=== PATIENT | male | born 1935 | race Hispanic/Latino ===

== ENCOUNTER 2020-12-13 11:20 | Inpatient (IN) | payer MEDICARE ==
[2020-12-13] MEDS ORDERED: SODIUM BICARB 8.4% 50 MEQ/50 ML SYRINGE IV ONE ×2 (11:38→12:00)
--- NOTE | 2020-12-13 11:53 | Emergency Department Report ---
ED Palpitations HPI - General Chief Complaint: Cardiac Arrest/CPR Stated Complaint: IRREGULAR HEART RATE Time Seen by Provider: 12/13/20 11:27 Source: patient, EMS, old records reviewed (documentation from [place]) Mode of arrival: Stretcher Limitations: No Limitations - History of Present Illness Initial Comments: Chief complaint: Low heart rate, hypotension HPI: This is an 85-year-old male who presents from [facility] with clinic for low heart rate and hypotension. Patient's medical history includes coronary artery disease with 2 cardiac stents, CLL, renal calculus, stroke, cataract, myeloproliferative disorder EMS was called for transport. Initial rhythm suspected to be third-degree heart block. EMS saw that patient became unresponsive. EMS interpreted the cardiac rhythm to be ventricular fibrillation. Patient received 1 shock. He became responsive again without requiring chest compressions. Patient explains that he has been feeling dizzy lately. Patient does not have history of hypertension. He states that his blood pressur e is normally 90/40. He was evaluated at [facility] on Thursday. Initially diagnosed with dehydra tion. He has history of severe anemia due to to the myeloproliferative disorder. He received transfusion and was discharged on Thursday. His heart rate has been in the 40s since he has been ill. He recalls his heart rate being in the 40s at [place]. He has not had any cardiac issues other than incidental finding of coronary artery disease remotely. He has had dizziness shortness of breath since discharge. His transported him to [facility] per private auto. Mr. Moura has experienced shooting pain for the last day. He has 1 to 2 minutes of shocking pain throughout his body. Patient is a retired nurse chemical dependency. He lives with his . Medications include, gabapentin, docusate, Lipitor, amiodarone, aspirin, Flomax, Eliquis, prednisone, allopurinol, omeprazole, furosemide, folic acid, Procrit -: days(s) (6 days since Thursday) Context: occured during rest Arrythmia History: other (No known history of arrhythmia) Associated Symptoms: other (Lightheadedness shortness of breath) Treatments Prior to Arrival: cardioversion - Related Data Allergies Allergy/AdvReac Type Severity Reaction Status Date / Time No Known Allergies Allergy Unverified 12/13/20 11:36 ED Review of Systems ROS: Stated complaint: IRREGULAR HEART RATE Other details as noted in HPI Comment: All other systems reviewed and negative Constitutional: malaise Respiratory: shortness of breath. denies: cough Cardiovascular: denies: chest pain, palpitations ED Past Medical Hx - Past Medical History Previous Medical History?: Yes Additional medical history: Coronary artery disease,myeloproliferative disorder - Surgical History Past Surgical History?: Yes Additional Surgical History: Cardiac stents - Social History Smoking Status: Never Smoker ED Physical Exam - General Limitations: Other General appearance: alert, in no apparent distress, other (Frail pale GCS 15 able to give a full history) - Head Head exam: Present: atraumatic, normocephalic - Eye Eye exam: Present: normal appearance - ENT ENT exam: Present: mucous membranes dry, other (No oropharyngeal lesions) - Neck Neck exam: Present: normal inspection, full ROM - Respiratory Respiratory exam: Present: normal lung sounds bilaterally. Absent: respiratory distress, wheezes, rales, stridor - Cardiovascular Cardiovascular Exam: Present: normal rhythm, bradycardia, irregular rhythm. Absent: systolic murmur, diastolic murmur, rubs, gallop - GI/Abdominal GI/Abdominal exam: Present: soft, normal bowel sounds. Absent: distended, tenderness, guarding, rebound - Extremities Exam Extremities exam: Present: pedal edema, other (Ankle pedal edema) - Back Exam Back exam: Present: normal inspection - Neurological Exam Neurological exam: Present: alert, oriented X3 - Psychiatric Psychiatric exam: Present: flat affect - Skin Skin exam: Present: dry, pallor ED Course Vital Signs 12/13/20 12/13/20 12/13/20 11:22 11:30 11:46 Pulse Rate 58 L Respiratory 20 16 Rate Blood Pressure 109/41 94/39 O2 Sat by Pulse 97 93 100 Oximetry 12/13/20 12/13/20 12/13/20 12:00 12:15 12:31 Pulse Rate Respiratory 29 H 15 29 H Rate Blood Pressure 96/49 77/48 O2 Sat by Pulse 100 100 97 Oximetry 12/13/20 12/13/20 12/13/20 12:45 13:01 13:15 Pulse Rate 57 L Respiratory 17 28 H 22 Rate Blood Pressure 77/48 88/59 88/59 O2 Sat by Pulse 100 96 Oximetry ED Medical Decision Making - Lab Data Result diagrams: 12/13/20 11:41 12/13/20 11:41 - EKG Data -: EKG Interpreted by Me (AV dissociation, left axis, prolonged QTC, widened QRS) - EKG Data 12/13/20 12:03 EKG obtained 1037 at [facility] AV disassociation present with ventricular rate 30 bpm irregular normal QTC no significant ST elevation widened QRS Old EKG provided in documentation In October 31, 2019 patient had narrow QRS with first-degree AV block Today's EKG obtained at our facility Time obtained 1123 EKG interpreted by me A-V dissociation ventricular rate 50 bpm irregular wide QRS prolonged QTC no obvious ST elevation left axis deviation - Radiology Data Radiology results: report reviewed Patient Name: ROSIE MOURA Gender: Male Date of : 1935 Referring Provider: RONALDO ELIZONDO Organization: [facility] Accession Number: [id number] Requested Date: December 13, 2020 11:27 Report Status: Final Requested Procedure: 1 Procedure Description: XR chest 1V ap Modality: XR Findings Reporting MD: Aristides Sanchez Dictation Time: December 13, 2020 10:51 Head Of Marketing Analytics: Not available Orchestra Conductor Date: CHEST 1 VIEW 12/13/2020 10:49 AM INDICATION / CLINICAL INFORMATION: arrhythmia. COMPARISON: None available. FINDINGS: SUPPORT DEVICES: None. HEART / MEDIASTINUM: Enlarged cardiac silhouette. LUNGS / PLEURA: Central pulmonary vascular congestion is noted with mild b ilateral interstitial opacities. No pleural effusion. No pneumothorax. ADDITIONAL FINDINGS: No significant additional findings. IMPRESSION: 1. Findings consistent with congestive heart failure and bilateral interstitial edema. Signer Name: Aristides Sanchez MD Signed: 12/13/2020 10:51 AM Workstation Name: [id number] - Medical Decision Making 1. Third-degree heart block with cardiogenic shock: Patient has pacer pads in place, dopamine infusion at this time. Cardiology consult evaluated patient [id number] in emergency department. BMP 17 871, troponin within normal limits. 2. Myeloproliferative disorder: Patient's recent hemoglobin is 7.4 according to patient's report. Hemoglobin 6.8 today. Patient will receive transfusion packed red blood cells. 3. Acute on chronic kidney injury. Patient reports creatinine to be 1.7 at baseline. Creatinine 2.9. Suspect vasomotor nephropathy with severe anemia. Critical Care Time: Yes Critical care time in (mins) excluding proc time.: 40 Critical care attestation.: If time is entered above; I have spent that time in minutes in the direct care of this critically ill patient, excluding procedure time. 40 minutes of critical care time excluding procedures were used in the care of the patient. I came immediately to the bedside upon patient's arrival. I obtained history from EMS at the bedside. I discussed treatment plan with the nursing team members. I reviewed electronic record. I kept the family member informed. Patient required multiple interventions and reassessments. I spoke with [place] physician in order to obtain additional medical history. ED Disposition Clinical Impression: Third degree heart block, Cardiogenic shock, Acute kidney injury, Myeloproliferative disorder, History of atrial fibrillation, Anticoagulant long- term use Disposition: 09 OP ADMIT IP TO THIS HOSP Is pt being admited?: Yes Does the pt Need Aspirin: No Condition: Critical Referrals: ROSIE WONG MD [Primary Care Provider] - 3-5 Days
--- NOTE | 2020-12-13 11:55 | XRay Report ---
CHEST 1 VIEW 12/13/2020 10:49 AM INDICATION / CLINICAL INFORMATION: arrhythmia. COMPARISON: None available. FINDINGS: SUPPORT DEVICES: None. HEART / MEDIASTINUM: Enlarged cardiac silhouette. LUNGS / PLEURA: Central pulmonary vascular congestion is noted with mild bilateral interstitial opaci ties. No pleural effusion. No pneumothorax. ADDITIONAL FINDINGS: No significant additional findings. IMPRESSION: 1. Findings consistent with congestive heart failure and bilateral interstitial edema. Signer Name: Aristides Sanchez MD Signed: 12/13/2020 11:51 AM Workstation Name: [id number]
[2020-12-13] MEDS ORDERED: CALCIUM GLUCONATE 1,000 MG in SODIUM CHLORIDE 0.9% 100 ML IV ONE (12:00)
[2020-12-13 12:19] LABS: INR 2.23 (0.87-1.13)
[2020-12-13 12:20] LABS: Calcium 7.8 mg/dL (8.4-10.2); Partial Thromboplastin Time 42.7 Sec. (24.2-36.6)
[2020-12-13 12:34] LABS: Hematocrit 22.3 % (35.5-45.6); Hemoglobin 6.9 gm/dl (11.8-15.2); Mean Corpuscular HGB Conc 31 % (32-34); Mean Corpuscular Volume 106 fl (84-94)
[2020-12-13 12:49] LABS: Red Cell Distribution Width 23.9 % (13.2-15.2)
[2020-12-13 12:50] LABS: Platelet Count 95 K/mm3 (140-440)
[2020-12-13] MEDS ORDERED: DOPamine/D5W 800 MG/250 ML 800 MG/250 ML BAG IV ONE ×2 (13:02)
[2020-12-13] MEDS ORDERED: SODIUM CHLORIDE 0.9% 500 ML 500 ML IV ONE (13:03)
[2020-12-13] MEDS ORDERED: HEPARIN/NS 5000 UNIT/500ML 0 ML IR ONE (14:05)
[2020-12-13] MEDS ORDERED: LIDOCAINE (1%) 10 MG/1 ML VIAL 20 ML MDV ONE (14:06)
[2020-12-13] MEDS ORDERED: HEPARIN 10,000 UNITS/10 ML VIAL ONE (14:06)
[2020-12-13] MEDS ORDERED: fentaNYL 100 MCG/2 ML INJ ONE (14:07)
[2020-12-13] MEDS ORDERED: MIDAZOLAM 2 MG/2 ML INJ ONE (14:07)
--- NOTE | 2020-12-13 14:28 | Consultation ---
History of Present Illness Consult date: 12/13/20 Requesting physician: RONALDO ELIZONDO History of present illness: This patient is a 85-year-old male with a significant history of A. fib with RVR anticoagulated on Eliquis and rate controlled with amiodarone, coronary artery disease with reported stent x2 (2013), CLL, primary fibrosis, chronic anemia, history of CVA x2 (2011). This patient is previously unknown to our practice. He is followed by [place] [facility]. Patient presents to [facility] ER via EMS with complaint of syncopal events with associated chest pain. Patient was shocked once in route by EMS, rhythm unknown. Review of telemetry reveals patient in third-degree heart block. Review of labs reveal severe anemia Hgb 6.9, thrombocytopenia: Platelets 95, kidney dysfunction: Creatinine 2.9. Patient states he was in the emergency room approximately 1 week ago where he received 1 unit of PRBCs for severe anemia. Patient states that he has been cared for in [place] facilities including his ER visit last week and had stents placed in 2013 at [facility], but chart review shows no prior visits. Will search for records to confirm. BNP is noted to be elevated on admission. Past History Past Medical History: atrial fib, CAD (CLL), cancer, other (Primary fibrosis) Past Surgical History: Other Medications and Allergies Allergies Allergy/AdvReac Type Severity Reaction Status Date / Time No Known Allergies Allergy Unverified 12/13/20 11:36 Active Meds: Active Medications Dopamine HCl/Dextrose (Intropin Drip 800 Mg/D5w 250 Ml) 800 mg in 250 mls @ 8.165 mls/hr IV TITR ONE; Protocol Stop: 12/14/20 19:39 Last Admin: 12/13/20 13:10 Dose: 5 mcg/kg/min, 8.165 mls/hr Documented by: Review of Systems Constitutional: no weight loss, no weight gain, no fever, no chills, no sweats Ears, nose, mouth and throat: no ear pain, no ear discharge, no decreased heari ng, no nose pain, no nasal congestion, no nasal discharge Cardiovascular: chest pain, edema, syncope, no orthopnea, no palpitations, no rapid/irregular heart beat, no lightheadedness, no shortness of breath Respiratory: no hemoptysis, no shortness of breath, no dyspnea on exertion Gastrointestinal: no abdominal pain, no nausea, no vomiting, no diarrhea Genitourinary Male: no flank pain Musculoskeletal: no neck stiffness, no neck pain, no shooting arm pain, no arm numbness/tingling, no low back pain, no shooting leg pain Integumentary: no rash, no pruritis, no redness, no sores, no wounds, no jaundice Neurological: no head injury, no paralysis, no weakness, no parathesias, no numbness, no tingling, no seizures, no syncope Psychiatric: no anxiety Endocrine: no cold intolerance, no heat intolerance Hematologic/Lymphatic: no easy bruising, no easy bleeding Allergic/Immunologic: no urticaria Physical Examination Last Vital Signs Temp Pulse 57 L 12/13/20 12:45 Resp 22 12/13/20 13:15 BP 88/59 12/13/20 13:15 Pulse Ox 96 12/13/20 13:01 HEENT: Positive: PERRL, Normocephaly, Mucus Membranes Moist Neck: Positive: neck supple, trachea midline Cardiac: Positive: S1/S2, Other (Third-degree heart block) Lungs: Positive: Normal Exam Neuro: Positive: Grossly Intact Abdomen: Positive: Unremarkable, Soft Skin: Negative: Rash, Wound Musculoskeletal: No Pain Extremities: Present: upper extr. pulses, lower extr. pulses, +1 Edema Results 12/13/20 11:41 12/13/20 11:41 Cardiac Enzymes 12/13/20 Range/Units 11:41 AST 28 (5-40) units/L Coagulation 12/13/20 Range/Units 11:41 PT 24.7 H (12.2-14.9) Sec. INR 2.23 H (0.87-1.13) APTT 42.7 H (24.2-36.6) Sec. CBC 12/13/20 Range/Units 11:41 WBC 28.8 H (4.5-11.0) K/mm3 RBC 2.10 L (3.65-5.03) M/mm3 Hgb 6.9 L (11.8-15.2) gm/dl Hct 22.3 L (35.5-45.6) % Plt Count 95 L (140-440) K/mm3 Comprehensive Metabolic Panel 12/13/20 Range/Units 11:41 Sodium 135 L (137-145) mmol/L Potassium 4.4 (3.6-5.0) mmol/L Chloride 102.3 (98-107) mmol/L Carbon Dioxide 19 L (22-30) mmol/L BUN 56 H (9-20) mg/dL Creatinine 2.9 H (0.8-1.3) mg/dL Glucose 141 H (75-100) mg/dL Calcium 7.8 L (8.4-10.2) mg/dL AST 28 (5-40) units/L ALT 30 (7-56) units/L Alkaline Phosphatase 74 (35-129) units/L Total Protein 4.7 L (6.3-8.2) g/dL Albumin 3.0 L (3.9-5) g/dL - Imaging and Cardiology Echo: pending EKG: report reviewed, image reviewed EKG interpretations - Telemetry EKG Rhythm: 3rd Degree HB AV and intraventricular conduction: complete (3) AV block Assessment and Plan Syncope secondary to third-degree AV moises block * Dopamine initiated for symptomatic hypotension. Temporary pacemaker has been placed. continue telemetry. * Avoid AV moises blocking agents. Discontinue home amiodarone. * Echocardiogram pending Acute respiratory failure * Initial SPO2 89% on room air. CXR reviewed: Bilateral interstitial edema * BNP is noted to be elevated on admission. Bilateral lower edema of 1+ noted. Patient currently requiring dopamine for hemodynamic support. We will plan to address volume optimization once patient is hemodynamically stable. Acute / Chronic kidney disease stage IIIa with associated diabetes mellitus * Patient was seen on 12/10/2020 in ER for syncope. Labs at that time revealed creatinine of 1.75 and Hgb of 7.4. He received 1 unit PRBC prior to discharge * Avoid nephrotoxic agents. A. fib with RVR * Anticoagulated on Eliquis at home. Hold Eliquis for procedure and reevaluate in a.m. in setting of chronic severe anemia and thrombocytopenia. Coronary artery disease s/p stent placement x2 * Patient reports negative heart cath performed in fall 2019 * Patient reports echocardiogram in fall 2019 that showed enlarged heart with an ejection fraction of 63% * History of stent placement x2 in 2011 at [facility] * Continue Lipitor 40 mg nightly, ASA 81 mg daily CLL associated with hemolytic anemia * Baseline hemoglobin 8.5 Primary myelofibrosis * hx of primary myelofibrosis on weekly Pegasys 45mcg SQ follows up with Dr. Resendez [place] heme DVT prophylaxis * Anticoagulated on Eliquis at home. SCDs are ordered. Will follow This patient was seen in conjunction with Dr. High who agrees with this assessment and plan of care - Patient Problems (1) Third degree heart block Current Visit: Yes Status: Acute (2) Acute respiratory failure with hypoxia Current Visit: Yes Status: Acute (3) Acute renal failure superimposed on stage 3a chronic kidney disease Current Visit: Yes Status: Acute (4) History of atrial fibrillation Current Visit: Yes Status: Chronic (5) Coronary artery disease Current Visit: Yes Status: Chronic (6) Stented coronary artery Current Visit: Yes Status: Chronic (7) Hypertension Current Visit: Yes Status: Chronic (8) Hyperlipidemia Current Visit: Yes Status: Chronic (9) Primary myelofibrosis Current Visit: Yes Status: Chronic (10) CLL (chronic lymphocytic leukemia) Current Visit: Yes Status: Chronic (11) Diabetes mellitus Current Visit: Yes Status: Chronic
[2020-12-13] MEDS ORDERED: SODIUM CHLORIDE 0.9% 1000 ML 1,000 ML IV ONE (14:33)
[2020-12-13] MEDS ORDERED: LIDOCAINE (2%) 20 MG/1 ML VIAL 20 ML MDV INFILTRATI ONE (14:33)
[2020-12-13] MEDS ORDERED: ATROPINE 0.1% (1 MG/10 ML) CARDIAC SYRINGE ONE (14:41)
[2020-12-13 15:23] LABS: Band Neutrophils # (Manual) 0.3 K/mm3; Total Cells Counted 100
--- NOTE | 2020-12-13 15:23 | Cardiac Catherization Report ---
DATE OF SERVICE: 12/13/2020 TEMPORARY PACEMAKER INSERTION CLINICAL INFORMATION: This is an 85-year-old gentleman with history of CLL, paroxysmal AFib, coronary arterial disease, renal insufficiency, who was sent over from [place] with syncope, found to have incomplete heart block. The patient had emergent temporary pacemaker placed. PROCEDURE: The procedure was done via the right common femoral vein, sterile technique, local anesthesia. A 6-[place] groin sheath was inserted in the common femoral vein. Temporary pacemaker was floated into the right ventricle, attaining capture rate of 60, sensitivity of 3, and rate of 3. No hematoma, no bleeding. SUMMARY: Successful placement of a temporary pacemaker wire for heart block via the right common femoral vein, sterile technique. We discussed this with the patient and the patient's family. TID: [id number] RECEIPT: [id number] MONAE/MARK
[2020-12-13 15:24] LABS: Anisocytosis 2+; Macrocytosis 1+; Ovalocytes 1+; Platelet Estimate Consistent w Auto; Tear Drop Cells 1+
[2020-12-13 18:43] LABS: INR 1.79 (0.87-1.13)
[2020-12-13] MEDS ORDERED: SODIUM CHLORIDE 0.9% 500 ML 500 ML IV SCH (19:20)
--- NOTE | 2020-12-13 20:06 | History and Physical Report ---
History of Present Illness Date of examination: 12/13/20 Date of admission: 12/13/20 13:36 Chief complaint: Dizziness and severe weakness History of present illness: 85-year-old male with multiple medical problems including CLL, coronary artery disease with 2 stents, renal calculus, stroke was sent from [facility] [place] for low heart rate and hypotension. Patient was seen at [facility] [place] on Thursday which is 4 days ago. Was diagnosed with dehydration and anemia. Was admitted and was given 1 unit of blood transfusion and IV fluids and was discharged. Patient's heart rate has been in the low 40s. Because of the low heart rate and hypotension EMS was called. EMS interpreted the cardiac rhythm was ventricular fibrillation and gave as ventricular fibrillation as ventricular fibrillation when was given cardioversion. Patient became responsive without requiring chest compressions. Patient has been feeling dizzy. Patient states that his blood pressure is normally 90/40. In the emergency room patient was diagnosed with complete heart block and was taken to the [facility] for pacemaker insertion. Patient had a room air oxygen of 89% in the emergency room contributed by possible CHF and pulmonary edema - Past Medical History Previous Medical Histo-89% on room air contributed by pulmonary edema and congestive heart failure ry?: Yes --Coronary artery disease x2 stents, --CLL - Surgical History Past Surgical History?: Yes Additional Surgical History: Cardiac stents - Social History Smoking Status: Never Smoker -Family history Htn Review of Systems ROS: Constitutional generalized weakness HEENT no sore throat no post nasal drip no diplopia Neck no neck stiffness no lymph gland enlargement Chest and lungs no shortness of breath cough or wheezing CVS no chest pain no diaphoresis no palpitations GI no nausea no vomiting no diarrhea Genitourinary system no dysuria no flank pain Musculoskeletal system no muscle pains no joint pains LOG SKIDDER dizziness Skin no rash no itching Psychiatric no depression no homicidal or suicidal tendencies Hematologic no lymphedema or bruising Endocrine no polydipsia no polyuria no cold intolerance no heat intolerance Past History Past Medical History: atrial fib, CAD (CLL), cancer, other (Primary fibrosis) Past Surgical History: Other Medications and Allergies Allergies Allergy/AdvReac Type Severity Reaction Status Date / Time No Known Allergies Allergy Unverified 12/13/20 11:36 Active Meds: Active Medications Aspirin (Aspirin 81 Mg Tab Chew) 81 mg PO QDAY DREA Atorvastatin Calcium (Atorvastatin 40 Mg Tab) 40 mg PO QHS DREA Dopamine HCl/Dextrose (Intropin Drip 800 Mg/D5w 250 Ml) 800 mg in 250 mls @ 8.165 mls/hr IV TITR ONE; Protocol Stop: 12/14/20 19:39 Last Admin: 12/13/20 13:10 Dose: 5 mcg/kg/min, 8.165 mls/hr Documented by: Exam - Constitutional Vitals: Temp Pulse Resp BP Pulse Ox 97.8 F 63 13 105/42 96 12/13/20 17:50 12/13/20 18:11 12/13/20 18:11 12/13/20 18:11 12/13/20 18:11 General appearance: Present: mild distress, well-nourished - EENT Eyes: Present: PERRL ENT: hearing intact, clear oral mucosa - Neck Neck: Present: supple, normal ROM - Respiratory Respiratory effort: normal Respiratory: bilateral: CTA - Cardiovascular Heart rate: 40 Heart Sounds: Present: S1 & S2. Absent: rub, click - Extremities Extremities: no ischemia, pulses intact, pulses symmetrical, No edema Peripheral Pulses: within normal limits - Abdominal General gastrointestinal: Present: soft, non-tender, non-distended, normal bowel sounds Male genitourinary: Present: normal - Integumentary Integumentary: Present: clear, warm, dry - Musculoskeletal Musculoskeletal: gait normal, strength equal bilaterally - Psychiatric Psychiatric: appropriate mood/affect, intact judgment & insight - Neurologic Neurologic: CNII-XII intact, moves all extremities HEART Score - HEART Score History: Highly suspicious EKG: Non-specific Age: > 65 Risk factors: 1-2 risk factors Troponin: Troponin T 0.015 ng/mL (0.00-0.029) 12/13/20 11:41 Results - Labs CBC & Chem 7: 12/13/20 11:41 12/13/20 11:41 Labs: Laboratory Last Values WBC 28.8 K/mm3 (4.5-11.0) H 12/13/20 11:41 RBC 2.10 M/mm3 (3.65-5.03) L 12/13/20 11:41 Hgb 6.9 gm/dl (11.8-15.2) L 12/13/20 11:41 Hct 22.3 % (35.5-45.6) L 12/13/20 11:41 MCV 106 fl (84-94) H 12/13/20 11:41 MCH 33 pg (28-32) H 12/13/20 11:41 MCHC 31 % (32-34) L 12/13/20 11:41 RDW 23.9 % (13.2-15.2) H 12/13/20 11:41 Plt Count 95 K/mm3 (140-440) L 12/13/20 11:41 Add Manual Diff Complete 12/13/20 11:41 Total Counted 100 12/13/20 11:41 Seg Neutrophils % Barnworker Groom 12/13/20 11:41 Seg Neuts % (Manual) 95.0 % (40.0-70.0) H 12/13/20 11:41 Band Neutrophils % 1.0 % 12/13/20 11:41 Lymphocytes % (Manual) 1.0 % (13.4-35.0) L 12/13/20 11:41 Monocytes % (Manual) 3.0 % (0.0-7.3) 12/13/20 11:41 Nucleated RBC % Not Reportable 12/13/20 11:41 Seg Neutrophils # Man 27.4 K/mm3 (1.8-7.7) H 12/13/20 11:41 Band Neutrophils # 0.3 K/mm3 12/13/20 11:41 Lymphocytes # (Manual) 0.3 K/mm3 (1.2-5.4) L 12/13/20 11:41 Abs React Lymphs (Man) 0.0 K/mm3 12/13/20 11:41 Monocytes # (Manual) 0.9 K/mm3 (0.0-0.8) H 12/13/20 11:41 Eosinophils # (Manual) 0.0 K/mm3 (0.0-0.4) 12/13/20 11:41 Basophils # (Manual) 0.0 K/mm3 (0.0-0.1) 12/13/20 11:41 Metamyelocytes # 0.0 K/mm3 12/13/20 11:41 Myelocytes # 0.0 K/mm3 12/13/20 11:41 Promyelocytes # 0.0 K/mm3 12/13/20 11:41 Blast Cells # 0.0 K/mm3 12/13/20 11:41 WBC Morphology Not Reportable 12/13/20 11:41 Hypersegmented Neuts Not Reportable 12/13/20 11:41 Hyposegmented Neuts Not Reportable 12/13/20 11:41 Hypogranular Neuts Not Reportable 12/13/20 11:41 Smudge Cells Not Reportable 12/13/20 11:41 Toxic Granulation Not Reportable 12/13/20 11:41 Toxic Vacuolation Not Reportable 12/13/20 11:41 Dohle Bodies Not Reportable 12/13/20 11:41 Pelger-Huet Anomaly Not Reportable 12/13/20 11:41 Pete Rods Not Reportable 12/13/20 11:41 Platelet Estimate Consistent w auto 12/13/20 11:41 Clumped Platelets Not Reportable 12/13/20 11:41 Plt Clumps, EDTA Not Reportable 12/13/20 11:41 Large Platelets Not Reportable 12/13/20 11:41 Giant Platelets Not Reportable 12/13/20 11:41 Platelet Satelliting Not Reportable 12/13/20 11:41 Plt Morphology Comment Not Reportable 12/13/20 11:41 RBC Morphology Not Reportable 12/13/20 11:41 Dimorphic RBCs Not Reportable 12/13/20 11:41 Polychromasia 1+ 12/13/20 11:41 Hypochromasia Not Reportable 12/13/20 11:41 Poikilocytosis Not Reportable 12/13/20 11:41 Anisocytosis 2+ 12/13/20 11:41 Microcytosis Not Reportable 12/13/20 11:41 Macrocytosis 1+ 12/13/20 11:41 Spherocytes Not Reportable 12/13/20 11:41 Pappenheimer Bodies Not Reportable 12/13/20 11:41 Sickle Cells Not Reportable 12/13/20 11:41 Target Cells Not Reportable 12/13/20 11:41 Tear Drop Cells 1+ 12/13/20 11:41 Ovalocytes 1+ 12/13/20 11:41 Helmet Cells Not Reportable 12/13/20 11:41 Bradley-Hawi Bodies Not Reportable 12/13/20 11:41 Thompson Rings Not Reportable 12/13/20 11:41 Scooter Cells Not Reportable 12/13/20 11:41 Bite Cells Not Reportable 12/13/20 11:41 Crenated Cell Not Reportable 12/13/20 11:41 Elliptocytes Not Reportable 12/13/20 11:41 Acanthocytes (Spur) Not Reportable 12/13/20 11:41 Rouleaux Not Reportable 12/13/20 11:41 Hemoglobin C Crystals Not Reportable 12/13/20 11:41 Schistocytes Not Reportable 12/13/20 11:41 Malaria parasites Not Reportable 12/13/20 11:41 Adrián Bodies Not Reportable 12/13/20 11:41 Hem Pathologist Commnt No 12/13/20 11:41 PT 24.7 Sec. (12.2-14.9) H 12/13/20 11:41 INR 2.23 (0.87-1.13) H 12/13/20 11:41 APTT 42.7 Sec. (24.2-36.6) H 12/13/20 11:41 Sodium 135 mmol/L (137-145) L 12/13/20 11:41 Potassium 4.4 mmol/L (3.6-5.0) 12/13/20 11:41 Chloride 102.3 mmol/L (98-107) 12/13/20 11:41 Carbon Dioxide 19 mmol/L (22-30) L 12/13/20 11:41 Anion Gap 18 mmol/L 12/13/20 11:41 BUN 56 mg/dL (9-20) H 12/13/20 11:41 Creatinine 2.9 mg/dL (0.8-1.3) H 12/13/20 11:41 Estimated GFR 21 ml/min 12/13/20 11:41 BUN/Creatinine Ratio 19 % 12/13/20 11:41 Glucose 141 mg/dL (75-100) H 12/13/20 11:41 POC Glucose 148 mg/dL (70-105) H 12/13/20 17:13 Calcium 7.8 mg/dL (8.4-10.2) L 12/13/20 11:41 Phosphorus 4.10 mg/dL (2.5-4.5) 12/13/20 11:41 Magnesium 2.00 mg/dL (1.7-2.3) 12/13/20 11:41 Total Bilirubin 1.40 mg/dL (0.1-1.2) H 12/13/20 11:41 AST 28 units/L (5-40) 12/13/20 11:41 ALT 30 units/L (7-56) 12/13/20 11:41 Alkaline Phosphatase 74 units/L (35-129) 12/13/20 11:41 Troponin T 0.015 ng/mL (0.00-0.029) 12/13/20 11:41 NT-Pro-B Natriuret Pep 54955 pg/mL (0-900) H 12/13/20 11:41 Total Protein 4.7 g/dL (6.3-8.2) L 12/13/20 11:41 Albumin 3.0 g/dL (3.9-5) L 12/13/20 11:41 Albumin/Globulin Ratio 1.8 % 12/13/20 11:41 Digoxin 0.3 ng/mL (0.9-2.0) L 12/13/20 11:41 Blood Type B POSITIVE 12/13/20 13:45 Antibody Screen Negative 12/13/20 13:45 Crossmatch See Detail 12/13/20 13:45 - Imaging and Cardiology EKG: report reviewed Cintron/IV: Voiding Method Urinal Assessment and Plan Assessment and plan: Critical care statement The high probability OF a clinically significant sudden or life-threatening deterioration of the cardiorespiratory system and endocrine system required my full and direct attention, intervention and postoperative management. The aggregate critical care time was 35 minutes. The time is in addition to time spent performing reported procedures but includes the followin: Data review and interpretation 2: Patient assessment and monitoring of vital signs 3: Documentation 4:: Medication orders and management Advance Directives: Yes (Full code) Plan of care discussed with patient/family: Yes - Patient Problems (1) Third degree heart block Current Visit: Yes Status: Acute Plan to address problem: Cardiac cath procedure Successful placement of temporary pacemaker wire for heart block or other right common femoral region via sterile technique. Discussed by Dr High with the patient and the patient's family Patient being admitted to ICU for IV dopamine dopamine and (2) Acute kidney injury Current Visit: Yes Status: Acute Plan to address problem: IV fluids for now Baseline creatinine was around 1.5 vasomotor nephropathy And dehydration. Nephrology consult (3) CLL (chronic lymphocytic leukemia) Current Visit: Yes Status: Chronic Plan to address problem: Follow-up with his cycle specialist at [facility] No emergent issues Transfuse 1 unit of packed red blood cells (4) Coronary artery disease Current Visit: Yes Status: Chronic Qualifiers: Coronary Disease-Associated Artery/Lesion type: [place] artery [place] vs. transplanted heart: [place] heart Plan to address problem: Had 2 stents in the past aspirin for now Aspirin for now (5) Malnutrition Current Visit: Yes Status: Chronic Qualifiers: Protein-calorie malnutrition severity: moderate Plan to address problem: Medically supplements requested (6) Anemia Current Visit: Yes Status: Chronic Qualifiers: Anemia type: bone marrow failure Plan to address problem: Secondary to CLL Transfuse 1 unit Follow-up with [facility] (7) DVT prophylaxis Current Visit: Yes Status: Acute Plan to address problem: On heparin GI prophylaxis
[2020-12-13] MEDS: HEPARIN 5,000 UNIT/1 ML VIAL SUB-Q SCH (21:21)
[2020-12-13] MEDS ORDERED: HEPARIN 5,000 UNIT/1 ML VIAL SUB-Q SCH (22:00)
--- NOTE | 2020-12-14 09:26 | Progress Note ---
Assessment and Plan Syncope secondary to persistent third-degree AV moises block * Dopamine has been weaned off. Temporary pacemaker has been placed. Third-deg ree AV block is persistent and patient is completely pacemaker dependent as demonstrated by weaning trial this a.m. * Avoid AV moises blocking agents. Discontinue home amiodarone. * Echocardiogram pending Acute respiratory failure * Initial SPO2 89% on room air. CXR reviewed: Bilateral interstitial edema * BNP is noted to be elevated on admission. Bilateral lower edema of 1+ noted. * Patient is currently symptom-free and significantly improved after PPM placement. No volume control at this time due to soft blood pressures and elevated creatinine. Acute / Chronic kidney disease stage IIIa with associated diabetes mellitus * Patient was seen on 12/10/2020 in ER for syncope. Labs at that time revealed creatinine of 1.75 and Hgb of 7.4. He received 1 unit PRBC prior to discharge * Avoid nephrotoxic agents. A. fib with RVR * Anticoagulated on Eliquis at home. * Currently holding AC in anticipation of pending procedure for permanent PPM Coronary artery disease s/p stent placement x2 * Patient reports negative heart cath performed in fall 2019 * Patient reports echocardiogram in fall 2019 that showed enlarged heart with an ejection fraction of 63% * History of stent placement x2 in 2011 at [facility] * Continue Lipitor 40 mg nightly, ASA 81 mg daily CLL associated with anemia * Baseline hemoglobin 8.5 * Patient received 2 units of PRBC overnight Primary myelofibrosis * hx of primary myelofibrosis on weekly Pegasys 45mcg SQ follows up with Dr. Resendez [place] heme DVT prophylaxis * Heparin SQ. SCDs are ordered. Will follow This patient was seen in conjunction with Dr. High who agrees with this assessment and plan of care - Patient Problems (1) Third degree heart block Current Visit: Yes Status: Acute (2) Acute respiratory failure with hypoxia Current Visit: Yes Status: Acute (3) Acute renal failure superimposed on stage 3a chronic kidney disease Current Visit: Yes Status: Acute (4) History of atrial fibrillation Current Visit: Yes Status: Chronic (5) Coronary artery disease Current Visit: Yes Status: Chronic Qualifiers: Coronary Disease-Associated Artery/Lesion type: [place] artery [place] vs. transplanted heart: [place] heart (6) Stented coronary artery Current Visit: Yes Status: Chronic (7) Hypertension Current Visit: Yes Status: Chronic (8) Hyperlipidemia Current Visit: Yes Status: Chronic (9) Primary myelofibrosis Current Visit: Yes Status: Chronic (10) CLL (chronic lymphocytic leukemia) Current Visit: Yes Status: Chronic (11) Diabetes mellitus Current Visit: Yes Status: Chronic Subjective Date of service: 12/14/20 Principal diagnosis: third degree heart block s/p temp ppm Interval history: Patient resting comfortably in bed. No shortness of breath or chest pain overnight. Telemetry reviewed: Paced rhythm rate 60. No events Objective Last Vital Signs Temp 97.8 F 12/14/20 07:56 Pulse 63 12/14/20 08:00 Resp 28 H 12/14/20 08:00 BP 107/43 12/14/20 08:00 Pulse Ox 95 12/14/20 08:00 - Physical Examination General: No Apparent Distress HEENT: Positive: PERRL, Normocephaly, Mucus Membranes Moist Neck: Positive: neck supple, trachea midline Cardiac: Positive: Regular Rate, S1/S2, Other (Paced) Lungs: Positive: Normal Exam, Normal Breath Sounds Neuro: Positive: Grossly Intact Abdomen: Positive: Unremarkable, Soft Skin: Negative: Rash, Wound Musculoskeletal: No Pain Extremities: Present: upper extr. pulses, lower extr. pulses, +1 Edema - Labs and Meds Cardiac Enzymes 12/13/20 Range/Units 11:41 AST 28 (5-40) units/L Coagulation 12/13/20 12/13/20 Range/Units 11:41 18:22 PT 24.7 H 20.7 H (12.2-14.9) Sec. INR 2.23 H 1.79 H (0.87-1.13) APTT 42.7 H (24.2-36.6) Sec. CBC 12/13/20 Range/Units 11:41 WBC 28.8 H (4.5-11.0) K/mm3 RBC 2.10 L (3.65-5.03) M/mm3 Hgb 6.9 L (11.8-15.2) gm/dl Hct 22.3 L (35.5-45.6) % Plt Count 95 L (140-440) K/mm3 Comprehensive Metabolic Panel 12/13/20 Range/Units 11:41 Sodium 135 L (137-145) mmol/L Potassium 4.4 (3.6-5.0) mmol/L Chloride 102.3 (98-107) mmol/L Carbon Dioxide 19 L (22-30) mmol/L BUN 56 H (9-20) mg/dL Creatinine 2.9 H (0.8-1.3) mg/dL Glucose 141 H (75-100) mg/dL Calcium 7.8 L (8.4-10.2) mg/dL AST 28 (5-40) units/L ALT 30 (7-56) units/L Alkaline Phosphatase 74 (35-129) units/L Total Protein 4.7 L (6.3-8.2) g/dL Albumin 3.0 L (3.9-5) g/dL - Imaging and Cardiology EKG: report reviewed Echo: pending - Telemetry EKG Rhythm: Paced AV and intraventricular conduction: complete (3) AV block
--- NOTE | 2020-12-14 09:38 | Consultation ---
History of Present Illness - Reason for Consult Consult date: 12/14/20 Complete Heart Block - History of Present Illness This patient is a 85-year-old male with a significant history of A. fib with RVR anticoagulated on Eliquis and rate controlled with amiodarone, coronary artery disease with reported stent x2 (2013), CLL, primary fibrosis, chronic anemia, history of CVA x2 (2011). This patient is previously unknown to our practice. He is followed by [facility]. Patient presents to [facility] ER via EMS with complaint of syncopal events with associated chest pain. Patient was shocked once in route by EMS, rhythm unknown. Review of telemetry reveals patient in third-degree heart block. Review of labs reveal severe anemia Hgb 6.9, thrombocytopenia: Platelets 95, kidney dysfunction: Creatinine 2.9. Patient states he was in the emergency room approximately 1 week ago where he received 1 unit of PRBCs for severe anemia. patient had transvenous pacer placed and is currently here in ICU 100% paced. Past History Past Medical History: atrial fib, CAD (CLL), cancer, other (Primary fibrosis) Past Surgical History: Other Medications and Allergies Allergies Allergy/AdvReac Type Severity Reaction Status Date / Time No Known Allergies Allergy Unverified 12/13/20 11:36 Home Medications Medication Instructions Recorded Confirmed Last Taken Type Amiodarone [Cordarone 200 MG TAB] 200 mg PO DAILY 12/14/20 12/14/20 Unknown History Apixaban [Eliquis] 5 mg PO BID 12/14/20 12/14/20 Unknown History Aspirin [Aspirin BABY CHEW TAB] 81 mg PO DAILY 12/14/20 12/14/20 Unknown History AtorvaSTATin [Lipitor] 40 mg PO QHS 12/14/20 12/14/20 Unknown History Docusate Sodium [Colace] 100 mg PO HS 12/14/20 12/14/20 Unknown History Flomax 0.4 mg PO DAILY 12/14/20 12/14/20 Unknown History Folic Acid 0.4 mg PO QDAY 12/14/20 12/14/20 Unknown History Furosemide [Lasix] 20 mg PO QDAY 12/14/20 12/14/20 Unknown History Gabapentin 100 mg PO DAILY 12/14/20 12/14/20 Unknown History Gabapentin 300 mg PO HS 12/14/20 12/14/20 Unknown History Omeprazole 20 mg PO BID 12/14/20 12/14/20 Unknown History Peginterferon Chase-2A [Pegasys] 180 mcg SQ FR 12/14/20 12/14/20 Unknown History Prednisone [predniSONE (Janay) ER 5 mg PO DAILY 12/14/20 12/14/20 Unknown History TAB] allopurinoL [Zyloprim] 300 mg PO BID 12/14/20 12/14/20 Unknown History Active Meds: Active Medications Aspirin (Aspirin 81 Mg Tab Chew) 81 mg PO QDAY DREA Atorvastatin Calcium (Atorvastatin 40 Mg Tab) 40 mg PO QHS [facility] Last Admin: 12/13/20 21:21 Dose: 40 mg Documented by: Heparin Sodium (Porcine) (Heparin 5,000 Unit/1 Ml Vial) 5,000 unit SUB-Q Q12HR [facility] Last Admin: 12/13/20 21: Dose: 5,000 unit Documented by: Dopamine HCl/Dextrose (Intropin Drip 800 Mg/D5w 250 Ml) 800 mg in 250 mls @ 8.165 mls/hr IV TITR ONE; Protocol Stop: 12/14/20 19:39 Last Titration: 12/14/20 07:00 Dose: 0 mcg/kg/min, 0 mls/hr Documented by: Sodium Chloride (Nacl 0.9% 500 Ml) 500 mls @ 0 mls/hr IV ONCE DREA Stop: 12/14/20 19:19 Sodium Chloride (Sodium Chloride 0.9% 100 Ml Ivpb) 75 ml IV DIRECT DREA Review of Systems All systems: negative Exam - Constitutional Vitals: Temp Pulse Resp BP Pulse Ox 97.8 F 63 28 H 107/43 95 12/14/20 07:56 12/14/20 08:00 12/14/20 08:00 12/14/20 08:00 12/14/20 08:00 General appearance: Present: no acute distress, well-nourished - EENT Eyes: Present: PERRL ENT: hearing intact - Neck Neck: Present: supple, normal ROM - Respiratory Respiratory effort: normal Respiratory: bilateral: CTA - Cardiovascular Rhythm: other (100% paced) - Extremities Extremities: no ischemia - Abdominal General gastrointestinal: Present: soft, non-tender, normal bowel sounds Results - Labs CBC & Chem 7: 12/13/20 11:41 12/13/20 11:41 Labs: Abnormal lab results 12/13/20 12/13/20 12/13/20 Range/Units 11:41 11:41 11:41 WBC 28.8 H (4.5-11.0) K/mm3 RBC 2.10 L (3.65-5.03) M/mm3 Hgb 6.9 L (11.8-15.2) gm/dl Hct 22.3 L (35.5-45.6) % MCV 106 H (84-94) fl MCH 33 H (28-32) pg MCHC 31 L (32-34) % RDW 23.9 H (13.2-15.2) % Plt Count 95 L (140-440) K/mm3 Seg Neuts % (Manual) 95.0 H (40.0-70.0) % Lymphocytes % (Manual) 1.0 L (13.4-35.0) % Seg Neutrophils # Man 27.4 H (1.8-7.7) K/mm3 Lymphocytes # (Manual) 0.3 L (1.2-5.4) K/mm3 Monocytes # (Manual) 0.9 H (0.0-0.8) K/mm3 PT 24.7 H (12.2-14.9) Sec. INR 2.23 H (0.87-1.13) APTT 42.7 H (24.2-36.6) Sec. Sodium 135 L (137-145) mmol/L Carbon Dioxide 19 L (22-30) mmol/L BUN 56 H (9-20) mg/dL Creatinine 2.9 H (0.8-1.3) mg/dL Glucose 141 H (75-100) mg/dL POC Glucose (70-105) mg/dL Calcium 7.8 L (8.4-10.2) mg/dL Total Bilirubin 1.40 H (0.1-1.2) mg/dL NT-Pro-B Natriuret Pep (0-900) pg/mL Total Protein 4.7 L (6.3-8.2) g/dL Albumin 3.0 L (3.9-5) g/dL Digoxin (0.9-2.0) ng/mL Crossmatch 12/13/20 12/13/20 12/13/20 Range/Units 11:41 11:41 13:45 WBC (4.5-11.0) K/mm3 RBC (3.65-5.03) M/mm3 Hgb (11.8-15.2) gm/dl Hct (35.5-45.6) % MCV (84-94) fl MCH (28-32) pg MCHC (32-34) % RDW (13.2-15.2) % Plt Count (140-440) K/mm3 Seg Neuts % (Manual) (40.0-70.0) % Lymphocytes % (Manual) (13.4-35.0) % Seg Neutrophils # Man (1.8-7.7) K/mm3 Lymphocytes # (Manual) (1.2-5.4) K/mm3 Monocytes # (Manual) (0.0-0.8) K/mm3 PT (12.2-14.9) Sec. INR (0.87-1.13) APTT (24.2-36.6) Sec. Sodium (137-145) mmol/L Carbon Dioxide (22-30) mmol/L BUN (9-20) mg/dL Creatinine (0.8-1.3) mg/dL Glucose (75-100) mg/dL POC Glucose (70-105) mg/dL Calcium (8.4-10.2) mg/dL Total Bilirubin (0.1-1.2) mg/dL NT-Pro-B Natriuret Pep 18872 H (0-900) pg/mL Total Protein (6.3-8.2) g/dL Albumin (3.9-5) g/dL Digoxin 0.3 L (0.9-2.0) ng/mL Crossmatch See Detail 12/13/20 12/13/20 Range/Units 17:13 18:22 WBC (4.5-11.0) K/mm3 RBC (3.65-5.03) M/mm3 Hgb (11.8-15.2) gm/dl Hct (35.5-45.6) % MCV (84-94) fl MCH (28-32) pg MCHC (32-34) % RDW (13.2-15.2) % Plt Count (140-440) K/mm3 Seg Neuts % (Manual) (40.0-70.0) % Lymphocytes % (Manual) (13.4-35.0) % Seg Neutrophils # Man (1.8-7.7) K/mm3 Lymphocytes # (Manual) (1.2-5.4) K/mm3 Monocytes # (Manual) (0.0-0.8) K/mm3 PT 20.7 H (12.2-14.9) Sec. INR 1.79 H (0.87-1.13) APTT (24.2-36.6) Sec. Sodium (137-145) mmol/L Carbon Dioxide (22-30) mmol/L BUN (9-20) mg/dL Creatinine (0.8-1.3) mg/dL Glucose (75-100) mg/dL POC Glucose 148 H (70-105) mg/dL Calcium (8.4-10.2) mg/dL Total Bilirubin (0.1-1.2) mg/dL NT-Pro-B Natriuret Pep (0-900) pg/mL Total Protein (6.3-8.2) g/dL Albumin (3.9-5) g/dL Digoxin (0.9-2.0) ng/mL Crossmatch - Imaging and Cardiology Chest x-ray: image reviewed (cardiomegaly with some pulmonary edema) Assessment and Plan 85 y/o male with complete heart block Continue transvenous pacing Resume home meds except Amio and Anticoagulation EP to see over the weekend Continue ICU care until permanent pacemaker placed CCT 31 minutes
[2020-12-14 09:46] LABS: Hematocrit 30.3 % (35.5-45.6); Hemoglobin 9.7 gm/dl (11.8-15.2); Mean Corpuscular HGB Conc 32 % (32-34); Mean Corpuscular Volume 101 fl (84-94); Platelet Count 103 K/mm3 (140-440); Red Cell Distribution Width 22.3 % (13.2-15.2)
[2020-12-14] MEDS ORDERED: SODIUM CHLORIDE 0.9% 100 ML IVPB IV SCH (10:00)
[2020-12-14] MEDS ORDERED: ASPIRIN 81 MG TAB CHEW PO SCH (10:00)
[2020-12-14] MEDS: HEPARIN 5,000 UNIT/1 ML VIAL SUB-Q SCH (10:14)
[2020-12-14] MEDS ORDERED: SODIUM CHLORIDE 0.9% 1000 ML 1,000 ML IV SCH (10:15)
--- NOTE | 2020-12-14 10:49 | Electrocardiograph Report ---
[facility] Test Date: 2020-12-13 Test Time: 11:23:30 Pat Name: ROSIE RUSSELL Department: Room: A255 Gender: M Senior Net Developer Architect: TV : 1935 Requested By: RONALDO ELIZONDO Order Number: [id number] Reading MD: Darshan High Measurements Intervals [place] Rate: 53 P: FL: QRS: -60 QRSD: 162 T: -33 QT: 566 QTc: 510 Interpretive Statements Normal Sinus Rhythm complete heart block, Nonspecific IVCD with LAD No previous ECG available for comparison Electronically Signed On 12-14-2020 10:49:09 EDT by Darshan High
--- NOTE | 2020-12-14 10:54 | Electrocardiograph Report ---
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
[2020-12-14] MEDS ORDERED: PEGINTERFERON ALFA SQ SCH (11:45)
--- NOTE | 2020-12-14 11:54 | Progress Note ---
Assessment and Plan Assessment and plan: This is an 85-year-old male with atrial fibrillation with RVR, primary fibrosis, chronic anemia, CVA x2, CAD s/p stents admitted for third-degree heart block. Syncope secondary to persistent third-degree AV moises block Acute respiratory failure Acute on chronic kidney disease stage IIIa associated with DM A. fib with RVR CAD s/p stent placement x2 CLL associated with anemia Primary myelofibrosis -CCM, cardiology consulted, appreciate recommendations -S/p temporary pacemaker placement by cardiology on 12/13 -S/p dopamine drip -Echocardiogram pending -Pulmonary hygiene -Supplemental oxygen as needed, wean as tolerated -IVF -Hold home Eliquis,lasix -Resume aspirin per cardiology -Resume home Pegasys -Strict I&O -Trend CBC and BMP DVT/GI prophylaxis: Pantoprazole, heparin subq, SCDS to BLE while in bed Dispo: ICU The high probability of a clinically significant, sudden or life threatening de terioration of the [cardio] system(s) required my full and direct attention, intervention and personal management. The aggregate critical care time was [35] minutes. This time is in addition to time spent performing reported procedures but includes the following: [x] Data Review and interpretation [x] Patient assessment and monitoring of vital signs [x] Documentation [x] Medication orders and management History Interval history: This is a 85-year-old male with atrial fibrillation with RVR anticoagulated on Eliquis and rate control with amiodarone, coronary artery disease with reported stent x2 in 2013, CLL, primary myelofibrosis, chronic anemia, CVA x2 in 2011 who presented to the emergency department on 12/13 with syncopal episode associated with chest pain. Work-up in the emergency department revealed complete heart block and patient was taken to the [facility] for temporary pacemaker insertion. Patient was admitted to the hospitalist group with consults to cardiology and [facility]. 12/14: Patient received a temporary pacemaker yesterday. Cardiology was at bedside and examination revealed patient is pacemaker dependent. Patient will be continued on normal saline at 75 mils per hour per cardiology for GIL. Patient will be evaluated for PPM. Hospitalist Physical - Constitutional Vitals: Temp Pulse Resp BP Pulse Ox 97.8 F 59 L 24 118/49 96 12/14/20 07:56 12/14/20 10:30 12/14/20 10:30 12/14/20 10:30 12/14/20 10:30 General appearance: Present: no acute distress - EENT Eyes: Present: PERRL, EOM intact ENT: hearing intact, clear oral mucosa - Neck Neck: Present: normal ROM - Respiratory Respiratory effort: normal Respiratory: bilateral: CTA - Cardiovascular Rhythm: other (paced) Heart Sounds: Present: S1 & S2. Absent: systolic murmur, diastolic murmur - Extremities Extremities: no ischemia, pulses intact, pulses symmetrical, normal temperature, normal color Extremity abnormal: edema Peripheral Pulses: within normal limits - Abdominal General gastrointestinal: soft, non-tender, non-distended, normal bowel sounds - Integumentary Integumentary: Present: clear, warm, dry - Psychiatric Psychiatric: cooperative - Neurologic Neurologic: CNII-XII intact, no focal deficits, moves all extremities - Allied Health Allied health notes reviewed: nursing, social work HEART Score - HEART Score EKG: Non-specific Age: > 65 Risk factors: 1-2 risk factors Troponin: Troponin T 0.015 ng/mL (0.00-0.029) 12/13/20 11:41 Results - Labs CBC & Chem 7: 12/14/20 09:30 12/14/20 09:30 Labs: Laboratory Last Values WBC 32.9 K/mm3 (4.5-11.0) H 12/14/20 09:30 RBC 3.00 M/mm3 (3.65-5.03) L 12/14/20 09:30 Hgb 9.7 gm/dl (11.8-15.2) L 12/14/20 09:30 Hct 30.3 % (35.5-45.6) L D 12/14/20 09:30 MCV 101 fl (84-94) H 12/14/20 09:30 MCH 32 pg (28-32) 12/14/20 09:30 MCHC 32 % (32-34) 12/14/20 09:30 RDW 22.3 % (13.2-15.2) H 12/14/20 09:30 Plt Count 103 K/mm3 (140-440) L 12/14/20 09:30 Add Manual Diff Complete 12/13/20 11:41 Total Counted 100 12/13/20 11:41 Seg Neutrophils % Manager User Experience 12/13/20 11:41 Seg Neuts % (Manual) 95.0 % (40.0-70.0) H 12/13/20 11:41 Band Neutrophils % 1.0 % 12/13/20 11:41 Lymphocytes % (Manual) 1.0 % (13.4-35.0) L 12/13/20 11:41 Monocytes % (Manual) 3.0 % (0.0-7.3) 12/13/20 11:41 Nucleated RBC % Not Reportable 12/13/20 11:41 Seg Neutrophils # Man 27.4 K/mm3 (1.8-7.7) H 12/13/20 11:41 Band Neutrophils # 0.3 K/mm3 12/13/20 11:41 Lymphocytes # (Manual) 0.3 K/mm3 (1.2-5.4) L 12/13/20 11:41 Abs React Lymphs (Man) 0.0 K/mm3 12/13/20 11:41 Monocytes # (Manual) 0.9 K/mm3 (0.0-0.8) H 12/13/20 11:41 Eosinophils # (Manual) 0.0 K/mm3 (0.0-0.4) 12/13/20 11:41 Basophils # (Manual) 0.0 K/mm3 (0.0-0.1) 12/13/20 11:41 Metamyelocytes # 0.0 K/mm3 12/13/20 11:41 Myelocytes # 0.0 K/mm3 12/13/20 11:41 Promyelocytes # 0.0 K/mm3 12/13/20 11:41 Blast Cells # 0.0 K/mm3 12/13/20 11:41 WBC Morphology Not Reportable 12/13/20 11:41 Hypersegmented Neuts Not Reportable 12/13/20 11:41 Hyposegmented Neuts Not Reportable 12/13/20 11:41 Hypogranular Neuts Not Reportable 12/13/20 11:41 Smudge Cells Not Reportable 12/13/20 11:41 Toxic Granulation Not Reportable 12/13/20 11:41 Toxic Vacuolation Not Reportable 12/13/20 11:41 Dohle Bodies Not Reportable 12/13/20 11:41 Pelger-Huet Anomaly Not Reportable 12/13/20 11:41 Pete Rods Not Reportable 12/13/20 11:41 Platelet Estimate Consistent w auto 12/13/20 11:41 Clumped Platelets Not Reportable 12/13/20 11:41 Plt Clumps, EDTA Not Reportable 12/13/20 11:41 Large Platelets Not Reportable 12/13/20 11:41 Giant Platelets Not Reportable 12/13/20 11:41 Platelet Satelliting Not Reportable 12/13/20 11:41 Plt Morphology Comment Not Reportable 12/13/20 11:41 RBC Morphology Not Reportable 12/13/20 11:41 Dimorphic RBCs Not Reportable 12/13/20 11:41 Polychromasia 1+ 12/13/20 11:41 Hypochromasia Not Reportable 12/13/20 11:41 Poikilocytosis Not Reportable 12/13/20 11:41 Anisocytosis 2+ 12/13/20 11:41 Microcytosis Not Reportable 12/13/20 11:41 Macrocytosis 1+ 12/13/20 11:41 Spherocytes Not Reportable 12/13/20 11:41 Pappenheimer Bodies Not Reportable 12/13/20 11:41 Sickle Cells Not Reportable 12/13/20 11:41 Target Cells Not Reportable 12/13/20 11:41 Tear Drop Cells 1+ 12/13/20 11:41 Ovalocytes 1+ 12/13/20 11:41 Helmet Cells Not Reportable 12/13/20 11:41 Bradley-Crouse Bodies Not Reportable 12/13/20 11:41 Creston Rings Not Reportable 12/13/20 11:41 Elliott Cells Not Reportable 12/13/20 11:41 Bite Cells Not Reportable 12/13/20 11:41 Crenated Cell Not Reportable 12/13/20 11:41 Elliptocytes Not Reportable 12/13/20 11:41 Acanthocytes (Spur) Not Reportable 12/13/20 11:41 Rouleaux Not Reportable 12/13/20 11:41 Hemoglobin C Crystals Not Reportable 12/13/20 11:41 Schistocytes Not Reportable 12/13/20 11:41 Malaria parasites Not Reportable 12/13/20 11:41 Adrián Bodies Not Reportable 12/13/20 11:41 Hem Pathologist Commnt No 12/13/20 11:41 PT 20.7 Sec. (12.2-14.9) H 12/13/20 18:22 INR 1.79 (0.87-1.13) H 12/13/20 18:22 APTT 42.7 Sec. (24.2-36.6) H 12/13/20 11:41 Sodium 135 mmol/L (137-145) L 12/14/20 09:30 Potassium 4.6 mmol/L (3.6-5.0) 12/14/20 09:30 Chloride 102.8 mmol/L (98-107) 12/14/20 09:30 Carbon Dioxide 22 mmol/L (22-30) 12/14/20 09:30 Anion Gap 15 mmol/L 12/14/20 09:30 BUN 51 mg/dL (9-20) H 12/14/20 09:30 Creatinine 2.2 mg/dL (0.8-1.3) H 12/14/20 09:30 Estimated GFR 29 ml/min 12/14/20 09:30 BUN/Creatinine Ratio 23 % 12/14/20 09:30 Glucose 141 mg/dL (75-100) H 12/14/20 09:30 POC Glucose 148 mg/dL (70-105) H 12/13/20 17:13 Calcium 8.0 mg/dL (8.4-10.2) L 12/14/20 09:30 Phosphorus 4.10 mg/dL (2.5-4.5) 12/13/20 11:41 Magnesium 2.00 mg/dL (1.7-2.3) 12/13/20 11:41 Total Bilirubin 1.40 mg/dL (0.1-1.2) H 12/13/20 11:41 AST 28 units/L (5-40) 12/13/20 11:41 ALT 30 units/L (7-56) 12/13/20 11:41 Alkaline Phosphatase 74 units/L (35-129) 12/13/20 11:41 Troponin T 0.015 ng/mL (0.00-0.029) 12/13/20 11:41 NT-Pro-B Natriuret Pep 40933 pg/mL (0-900) H 12/13/20 11:41 Total Protein 4.7 g/dL (6.3-8.2) L 12/13/20 11:41 Albumin 3.0 g/dL (3.9-5) L 12/13/20 11:41 Albumin/Globulin Ratio 1.8 % 12/13/20 11:41 Digoxin 0.3 ng/mL (0.9-2.0) L 12/13/20 11:41 Blood Type B POSITIVE 12/13/20 13:45 Antibody Screen Negative 12/13/20 13:45 Crossmatch See Detail 12/13/20 13:45 Cintron/IV: Voiding Method Urinal Active Medications - Current Medications Current Medications: Generic Name Dose Route Start Last Admin Trade Name Freq PRN Reason Stop Dose Admin Aspirin 81 mg 12/14/20 10:00 12/14/20 10:14 Aspirin 81 Mg Tab Chew PO 81 mg QDAY DREA Administration Atorvastatin Calcium 40 mg 12/13/20 22:00 12/13/20 21:21 Atorvastatin 40 Mg Tab PO 40 mg QHS DREA Administration Docusate Sodium 100 mg 12/14/20 22:00 Docusate Sodium 100 Mg Cap PO HS DREA Folic Acid 0.5 mg 12/15/20 10:00 Folic Acid 1 Mg Tab PO QDAY DREA Heparin Sodium (Porcine) 5,000 unit 12/13/20 22:00 12/14/20 10:14 Heparin 5,000 Unit/1 Ml Vial SUB-Q 5,000 unit Q12HR DREA Administration Dopamine HCl/Dextrose 800 mg in 250 mls @ 8.165 mls/hr 12/13/20 13:02 12/14/20 07:00 Intropin Drip 800 Mg/D5w 250 Ml IV 12/14/20 19:39 0 mcg/kg/min TITR ONE 0 mls/hr Titration Protocol 5 MCG/KG/MIN Sodium Chloride 500 mls @ 0 mls/hr 12/13/20 19:20 Nacl 0.9% 500 Ml IV 12/14/20 19:19 ONCE DREA As Directed Sodium Chloride 1,000 mls @ 75 mls/hr 12/14/20 10:15 12/14/20 10:16 Nacl 0.9% 1000 Ml IV 75 mls/hr DIRECT DREA Administration Miscellaneous Medication 180 mcg 12/14/20 11:45 Peginterferon Chase-2a [Pegasys] SQ FR DREA Pantoprazole Sodium 20 mg 12/14/20 16:30 Pantoprazole 20 Mg Tab PO BIDAC DREA Tamsulosin HCl 0.4 mg 12/15/20 10:00 Tamsulosin 0.4 Mg Cap PO DAILY DREA Nutrition/Malnutrition Assess - Dietary Evaluation Nutrition/Malnutrition Findings: Nutrition Notes Start: 12/14/20 10:25 Freq: Status: Active Protocol: Document 12/14/20 10:25 KEANU (Rec: 12/14/20 10:38 KEANU [id number]) Co-Sign 12/14/20 10:25 MK Nutrition Notes Need for Assessment generated from: MD Order Initial or Follow up Assessment Current Diagnosis Acute Kidney Injury,CKD(stage I-IV),Coronary Artery Disease, Decubitus(Pressure Ulcer), Hypertension,Respiratory Failure,Malnutrition,Stroke, Hyperlipidemia Other Pertinent Diagnosis CLL, kidney stones, third degree heart block Current Diet Cardiac Labs/Tests 12/13 Na 135 BUN 56 Cr 2.9 BG 141 Ca 7.8 Pertinent Medications Reviewed Height 5 ft 10 in Weight 87 kg Usual Body Weight 88.6 kg [place] Body Weight (kg) 75.45 BMI 27.5 Intake Prior to Admission Good Weight change and time frame 2% wt loss, unknown Weight Status Appropriate Subjective/Other Information MD order for diet supplements. Pt reports good appetite and intakes [employer]. Pt states he had an episode of diarrhea x2 hr 1 week ago, no episodes since. Pt states his wt fluctuates slightly, but he has not noticed recent significant wt loss. Pt reports consuming 75% breakfast and 100% ONS. Percent of energy/protein needs met: 82%/91% (PO only) Burn Absent Trauma Absent GI Symptoms None Food Allergy No Current % PO Good (75-100%) Minimum of two criteria No Body Fat Depletion Mild depletion (non-severe) Muscle Mass Mild Depletion (non-severe) #1 Nutrition Diagnosis No nutrition diagnosis at this time Is patient on ventilator? No Is Patient Ambulatory and/or Out of Bed Yes REE-([facility]-ambulatory/OOB) [ 2028. NUTR.MSJOOB] Calculation Used for Recommendations [facility] Additional Notes Pro: 70-104 (0.8-1.2 g/kg) Fluid: 1 ml/kcal or per MD Nutrition Intervention Change Diet Order: Renal diet Add Supplement/Snack (indicate name/kcal D/C Ensure /protein ) Goal #1 Meet at least 75% energy and protein needs via PO intakes Anticipated Discharge Needs: Renal diet Follow-Up By: 12/18/20 Additional Comments F/U for Renal diet tolerance
--- NOTE | 2020-12-14 15:14 | Discharge Summary ---
Providers - Providers Date of Admission: 12/13/20 13:36 Attending physician: SELENA MACK MD 12/13/20 14:19 Consult to Physician [CONS] Stat Comment: Consulting Provider: MICHAEL ZUNIGA Physician Instructions: Reason For Exam: third degree heart block 12/13/20 14:49 Consult to Physician [CONS] Routine Comment: Consulting Provider: GUS LEE Physician Instructions: Reason For Exam: critical care Primary care physician: ROSIE WONG MD Hospitalization Condition: Stable Hospital course: This is a 85-year-old male with atrial fibrillation with RVR anticoagulated on Eliquis and rate control with amiodarone, coronary artery disease with reported stent x2 in 2013, CLL, primary myelofibrosis, chronic anemia, CVA x2 in 2011 who presented to the emergency department on 12/13 with syncopal episode associated with chest pain. Work-up in the emergency department revealed complete heart block and patient was taken to the [facility] for temporary pacemaker insertion. Patient was admitted to the hospitalist group with consults to cardiology and [facility]. On 12/14 cardiology was at bedside and examination revealed patient is pacemaker dependent, patient will be continued on normal saline at 75 mils per hour per cardiology for acute kidney injury. Patient will be transferred to [facility] to the CCU for further interventions per [place]. Accepting physician is Dr. Linda. Care will be transferred to [facility]. Syncope secondary to persistent third-degree AV moises block Acute respiratory failure Acute on chronic kidney disease stage IIIa associated with DM A. fib with RVR CAD s/p stent placement x2 CLL associated with anemia Primary myelofibrosis -CCM, cardiology consulted, appreciate recommendations -S/p temporary pacemaker placement by cardiology on 12/13 -S/p dopamine drip -Echocardiogram pending -Pulmonary hygiene -Supplemental oxygen as needed, wean as tolerated -IVF -Hold home Eliquis,lasix -Resume aspirin per cardiology -Resume home Pegasys -Strict I&O -Trend CBC and BMP DVT/GI prophylaxis: Pantoprazole, heparin subq, SCDS to BLE while in bed Dispo: ICU Disposition: [id number]/TX-[id number] ANOTHER TYPE HLTHCARE Final Discharge Diagnosis (Prints w/discharge instructions): Syncope secondary to persistent third-degree AV moises block. Acute respiratory failure. Acute on chronic kidney disease stage IIIa associated with DM. A. fib with RVR. CAD s/p stent placement x2. CLL associated with anemia. Primary myelofibrosis Time spent for discharge: 35 Core Measure Documentation - Palliative Care Palliative Care/ Comfort Measures: Not Applicable - Core Measures Any of the following diagnoses?: history only Exam - Constitutional Vitals: Temp Pulse Resp BP Pulse Ox 98.2 F 58 L 30 H 112/45 96 12/14/20 12:00 12/14/20 14:00 12/14/20 14:00 12/14/20 14:00 12/14/20 14:00 General appearance: Present: no acute distress - EENT Eyes: Present: PERRL, EOM intact ENT: hearing intact, clear oral mucosa - Neck Neck: Present: normal ROM - Respiratory Respiratory effort: normal Respiratory: bilateral: CTA - Cardiovascular Rhythm: regular Heart Sounds: Present: S1 & S2. Absent: systolic murmur, diastolic murmur Details: Temporary pacemaker in place which is set to 65 bpm - Extremities Extremities: no ischemia, pulses intact, pulses symmetrical, normal temperature, normal color, Full ROM Extremity abnormal: edema Peripheral Pulses: within normal limits - Abdominal General gastrointestinal: Present: soft, non-tender, non-distended, normal bowel sounds - Integumentary Integumentary: Present: clear, warm, dry - Musculoskeletal Musculoskeletal: strength equal bilaterally - Psychiatric Psychiatric: appropriate mood/affect, cooperative - Neurologic Neurologic: CNII-XII intact, moves all extremities Plan Activity: advance as tolerated Diet: low fat, low cholesterol, low salt, low carbohydrate Wound: per your surgeon's advice Special Instructions: record daily weights, record daily BP diary, record blood sugar diary Additional Instructions: Care is being transferred to [facility] CCU. Accepting physician is Dr. Linda. Follow up with: ROSIE WONG MD [Primary Care Provider] - 3-5 Days RAFAEL MCNAIR MD [Staff Physician] - 7 Days
[2020-12-14] MEDS ORDERED: PANTOPRAZOLE 20 MG TAB PO SCH (16:30)
[2020-12-14 18:36] VITALS: BP 110/39
[2020-12-14] MEDS ORDERED: DOCUSATE SODIUM 100 MG CAP PO SCH (22:00)
[2020-12-15] MEDS ORDERED: TAMSULOSIN 0.4 MG CAP PO SCH (10:00)
[2020-12-15] MEDS ORDERED: FOLIC ACID 1 MG TAB PO SCH (10:00)
== END 2020-12-14 18:30 | disposition short-term general hospital (02) | DRG 308 ==
LOC: ED 11:20 → CC1 13:36
PROVIDERS: ADMIT Internal Medicine; ATTEND Internal Medicine
PROC: 5A1223Z Performance of Cardiac Pacing, Continuous (ICD-10-PCS; principal; 2020-12-13)
PROC: 30233N1 Transfusion of Nonautologous Red Blood Cells into Peripheral Vein, Percutaneous Approach (ICD-10-PCS; 2020-12-13)
DX: I44.2 Atrioventricular block, complete (principal); J96.01 Acute respiratory failure with hypoxia; R57.0 Cardiogenic shock; N17.9 Acute kidney failure, unspecified; D47.1 Chronic myeloproliferative disease; C91.10 Chronic lymphocytic leukemia of B-cell type not having achieved remission; E44.0 Moderate protein-calorie malnutrition; I48.91 Unspecified atrial fibrillation; I25.10 Atherosclerotic heart disease of native coronary artery without angina pectoris; D63.8 Anemia in other chronic diseases classified elsewhere; D69.6 Thrombocytopenia, unspecified; E11.22 Type 2 diabetes mellitus with diabetic chronic kidney disease; I10 Essential (primary) hypertension; E78.5 Hyperlipidemia, unspecified; N18.31 Chronic kidney disease, stage 3a; Z79.01 Long term (current) use of anticoagulants; Z95.5 Presence of coronary angioplasty implant and graft; Z86.73 Personal history of transient ischemic attack (TIA), and cerebral infarction without residual deficits; Z79.899 Other long term (current) drug therapy; Z82.49 Family history of ischemic heart disease and other diseases of the circulatory system; Z68.27 Body mass index [BMI] 27.0-27.9, adult
CPT/HCPCS: 33210; 36415; 71045; 80048; 80053; 80162; 82962; 83735; 83880; 84100; 84484; 85007; 85025; 85027; 85610; 85730; 86850; 86900; 86901; 86920; 93005; 93306; 96365; 96375; G0378; A9270-GY; C1894; J0461; J0610; J1265; J1644; J2250; J3010; J7030; J7040; P9016